=== PATIENT | female | born 1985 | race Caucasian/White ===

== ENCOUNTER 2017-10-18 02:03 | Inpatient (IN) ==
[2017-10-18] MEDS ORDERED: ceFAZolin 1,000 MG in SYRINGE 1 EACH IV ONE (02:17)
[2017-10-18] MEDS ORDERED: FAMOTIDINE 20 MG/2 ML VIAL IV ONE (02:17)
[2017-10-18] MEDS ORDERED: CITRIC ACID/SODIUM CITRATE 30 ML UDCUP PO ONE (02:17)
[2017-10-18] MEDS ORDERED: TERBUTALINE 1 MG/1 ML VIAL SUBCUT ONE (02:59)
[2017-10-18] MEDS ORDERED: MEPERIDINE 50 MG/1 ML VIAL IV ONE (02:59)
[2017-10-18] MEDS: LACTATED RINGERS 1,000 ML IV SCH ×2 (03:13→06:11)
[2017-10-18 05:17] LABS: Basophils % 0.3 % (0.0-0.8); Eosinophils % 0.3 % (0.00-10.9); Hematocrit 34.1 VOL% (35.7-47.0); Hemoglobin 11.1 GM/DL (12.0-16.0); Immature Granulocytes % 0.5 %; Immature Granulocytes Absolute 0.06 #; Lymphocytes # 1.9 10*3/uL (1.4-4.0); Lymphocytes % 16.4 % (21.3-54.2); Mean Corpuscular HGB Conc 32.6 GM/DL (32-36); Mean Corpuscular Hemoglobin 30 PG (27-34); Mean Corpuscular Volume 92.2 FL (87-102); Mean Platelet Volume 11.5 FL (9.6-12.0); Monocytes # 0.6 10*3/uL (0.11-0.8); Monocytes % 5.3 % (1.7-12.7); Neutrophils % 77.2 % (38.7-73.9); Platelet Count 174 T/CUMM (130-400); Red Cell Distribution Width 14.5 % (9.3-17.3); White Blood Count 11.7 T/CUMM (4-12)
[2017-10-18] MEDS ORDERED: OXYTOCIN 10 UNIT/ML VIAL ONE (06:00)
[2017-10-18] MEDS ORDERED: OXYTOCIN/LR 30 UNIT/1,000 ML BAG IV ONE (06:02)
[2017-10-18] MEDS ORDERED: ceFAZolin 2,000 MG in PREMIX 1 EACH IV ONE (06:02)
[2017-10-18 07:01] LABS: Apearance,Urine CLOUDY (Clear); Bilirubin,Urine Negative (Negative); Blood, Urine Large mg/dL (Negative); Glucose,Urine (UA) Negative (Negative); Ketones,Urine 5 mg/dL (Negative); Mucus,Urine Occasional /LPF (Occasional); Nitrite,Urine Negative (Negative); Protein,Urine 100 MG/DL; RBC,Urine 1687 /HPF (0-4); Squamous Epithelial Cell,Urine Occasional /HPF (0-10); Urine Color Yellow (Yellow); Urine Specific Gravity 1.025 (1.001-1.035); Urine Urobilinogen < 2.0 EU/DL (0.2-1.0); WBC,Urine 6 /HPF (0-6)
[2017-10-18] MEDS ORDERED: hydrOXYzine HCL 25 MG/1 ML VIAL IM PRN (07:36)
[2017-10-18] MEDS ORDERED: diphenhydrAMINE 50 MG/1 ML VIAL IV PRN ×3 (07:36→19:54)
[2017-10-18] MEDS ORDERED: ONDANSETRON 4 MG/2 ML VIAL IV PRN ×2 (07:36→10:22)
[2017-10-18] MEDS ORDERED: HYDROmorphone 2 MG/1 ML VIAL IV PRN (07:36)
[2017-10-18] MEDS ORDERED: fentaNYL 100 MCG/2 ML VIAL ONE (07:39)
[2017-10-18] MEDS ORDERED: MORPHINE 10 MG/10 ML VIAL ONE (07:40)
[2017-10-18] MEDS ORDERED: ePHEDrine 50 MG/ML AMP ONE (07:41)
[2017-10-18] MEDS ORDERED: OXYTOCIN/LR 20 UNIT/1,000 ML BAG IV ONE ×2 (07:58→10:22)
[2017-10-18] MEDS ORDERED: ACETAMINOPHEN 325 MG TABLET PO PRN (10:22)
[2017-10-18] MEDS ORDERED: SIMETHICONE CHEW 80 MG TABLET PO PRN (10:22)
[2017-10-18] MEDS ORDERED: LACTATED RINGERS 1,000 ML IV SCH (10:22)
[2017-10-18] MEDS ORDERED: RHO(D) IMMUNE GLOBULIN 300 MCG SYRINGE IM ONE (10:30)
[2017-10-18] MEDS: ceFAZolin 1,000 MG in SYRINGE 1 EACH IV SCH ×2 (14:27→22:16)
[2017-10-18 14:57] LABS: Basophils % 0.2 % (0.0-0.8); Eosinophils % 0.3 % (0.00-10.9); Hematocrit 30.2 VOL% (35.7-47.0); Hemoglobin 10.2 GM/DL (12.0-16.0); Immature Granulocytes % 0.5 %; Immature Granulocytes Absolute 0.07 #; Lymphocytes % 13.7 % (21.3-54.2); Mean Corpuscular HGB Conc 33.8 GM/DL (32-36); Mean Corpuscular Hemoglobin 31 PG (27-34); Mean Platelet Volume 11.5 FL (9.6-12.0); Monocytes # 0.8 10*3/uL (0.11-0.8); Monocytes % 5.4 % (1.7-12.7); Neutrophils # 11.7 10*3/uL (1.4-7.4); Neutrophils % 79.9 % (38.7-73.9); Platelet Count 187 T/CUMM (130-400); Red Blood Count 3.32 MC/CUMM (3.8-5.5); Red Cell Distribution Width 14.6 % (9.3-17.3); White Blood Count 14.6 T/CUMM (4-12)
[2017-10-18] MEDS: DOCUSATE SODIUM 100 MG CAPSULE PO SCH (15:51)
[2017-10-18] MEDS: MULTIVITAMIN (PRENATAL) TABLET PO SCH (15:51)
[2017-10-18] MEDS ORDERED: diphenhydrAMINE 50 MG/1 ML VIAL ONE (16:11)
[2017-10-18] MEDS: IBUPROFEN 800 MG TABLET PO PRN (22:14)
[2017-10-19] MEDS: DOCUSATE SODIUM 100 MG CAPSULE PO SCH ×3 (00:25→20:26)
[2017-10-19 07:00] LABS: Basophils % 0.3 % (0.0-0.8); Eosinophils # 0.1 10*3/uL (0.0-0.87); Eosinophils % 1.1 % (0.00-10.9); Hematocrit 28.6 VOL% (35.7-47.0); Hemoglobin 9.4 GM/DL (12.0-16.0); Immature Granulocytes % 0.3 %; Immature Granulocytes Absolute 0.03 #; Lymphocytes # 1.8 10*3/uL (1.4-4.0); Lymphocytes % 20.4 % (21.3-54.2); Mean Corpuscular HGB Conc 32.9 GM/DL (32-36); Mean Corpuscular Hemoglobin 31 PG (27-34); Mean Corpuscular Volume 92.9 FL (87-102); Mean Platelet Volume 11.5 FL (9.6-12.0); Monocytes # 0.7 10*3/uL (0.11-0.8); Monocytes % 7.4 % (1.7-12.7); Neutrophils # 6.2 10*3/uL (1.4-7.4); Neutrophils % 70.5 % (38.7-73.9); Platelet Count 142 T/CUMM (130-400); Red Blood Count 3.08 MC/CUMM (3.8-5.5); Red Cell Distribution Width 14.8 % (9.3-17.3); White Blood Count 8.8 T/CUMM (4-12)
[2017-10-19] MEDS: IBUPROFEN 800 MG TABLET PO PRN ×2 (07:30→15:51)
[2017-10-19] MEDS: MAGNESIUM HYDROXIDE SUSP 30 ML UDCUP PO PRN ×2 (08:52→20:26)
[2017-10-19] MEDS: MULTIVITAMIN (PRENATAL) TABLET PO SCH (08:52)
[2017-10-19] MEDS: FERROUS SULFATE 325 MG TABLET PO SCH ×2 (16:04→20:26)
[2017-10-20] MEDS: IBUPROFEN 800 MG TABLET PO PRN (04:18)
[2017-10-20] MEDS: DOCUSATE SODIUM 100 MG CAPSULE PO SCH (09:22)
[2017-10-20] MEDS: MULTIVITAMIN (PRENATAL) TABLET PO SCH (09:22)
[2017-10-20] MEDS: FERROUS SULFATE 325 MG TABLET PO SCH (09:22)
[2017-10-20 09:55] VITALS: BP 143/74
== END 2017-10-20 18:00 | disposition home or self-care (01) | DRG 540 ==
LOC: N.LDOUT 02:03 → N.LD 02:09 → N.OB 09:41
PROVIDERS: ADMIT Obstetrics & Gynecology; ATTEND Obstetrics & Gynecology